=== PATIENT | female | born 2000 | race African-American/Black ===

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

== ENCOUNTER 2018-04-09 00:52 | Emergency (ER) | payer SELFPAY ==
[2018-04-09] MEDS ORDERED: Lidocaine 1% (PF) 30 ML VIAL ONE (01:17)
== END 2018-04-09 02:00 | disposition home or self-care (01) ==
LOC: ERS 00:52
DX: L02.31 Cutaneous abscess of buttock (principal); F17.290 Nicotine dependence, other tobacco product, uncomplicated
CPT/HCPCS: 10060; J2001

== ENCOUNTER 2018-08-27 22:06 | Emergency (ER) | payer SELFPAY ==
[2018-08-27 22:26] LABS: Bilirubin Negative (Negative); Blood, Urine Negative (Negative); Clarity CLEAR (Clear); Glucose, Urine (Dipstick) Negative (Negative); Leukocyte Negative (Negative); Nitrite Negative (Negative); Pregnancy Test - Urine (BHCG) Negative (Negative); Pregu Control Background? CLEAR/WHITE (CLR/WHITE); Pregu Control Bar Appear? YES (CONTROL BAR); Protein, Urine (Dipstick) Negative (Neg-Trace); Specific Gravity 1.018 (1.002-1.036); Specific Gravity, Urine 1.018 (1.002-1.036); Urobilinogen 0.2 mg/dL (0.2-1.0)
[2018-08-27 22:27] LABS: Hemoglobin 13.9 g/dL (12.0-16.0); Mean Corpuscular HGB CONC 31.9 g/dL (32.0-36.0); Mean Corpuscular Hemoglobin 28.7 pg (25.0-35.0); Mean Corpuscular Volume 90.1 fL (78.0-98.0); Mean Platelet Volume 8.9 fL (7.4-10.4); Platelet Count 179 thou/uL (130-400); RBC Distribution Width 14.6 % (11.5-14.5); Red Blood Cell (RBC) Count 4.83 mill/uL (4.00-5.20); White Blood Cell (WBC) Count 4.6 thou/uL (4.8-10.8)
[2018-08-27 22:45] LABS: Lymphocytes 32 % (28-48); MDiff Complete? YES; Monocytes 3 % (0-4); Neutrophil 65 % (31-61); Platelet Morphology Comment Appears Adequate; RBC Morphology Normal
[2018-08-27 22:49] LABS: ALT (SGPT) 10 U/L (8-55); AST (SGOT) 16 U/L (5-30); Albumin 4.3 g/dL (3.5-5.0); Alkaline Phosphatase 66 U/L (40-150); Anion Gap 12 mmol/L (10-20); BUN (Urea Nitrogen) 11 mg/dL (8.4-21.0); Bilirubin, Total 0.3 mg/dL (0.2-1.2); Calc. Creatinine Clearance 0 mL/min (70-130); Calcium 9.5 mg/dL (7.8-10.44); Carbon Dioxide 23 mmol/L (22-29); Chloride 105 mmol/L (98-107); Estimated GFR-MDRD Greater than 90; Globulin 3.4 g/dL (2.4-3.5); Glucose 88 mg/dL (70-105); Lipase 20 U/L (8-78); Potassium 4.1 mmol/L (3.5-5.1); Protein, Total 7.7 g/dL (6.0-8.3); Sodium 136 mmol/L (136-145)
== END 2018-08-27 23:25 | disposition home or self-care (01) ==
LOC: ERS 22:06
DX: R10.9 Unspecified abdominal pain (principal); F17.210 Nicotine dependence, cigarettes, uncomplicated
CPT/HCPCS: 36415; 80053; 81003; 81025; 83690; 85025; 99284

== ENCOUNTER 2018-11-29 12:19 | Emergency (ER) | payer SELFPAY | END 2018-11-29 12:45 | disposition home or self-care (01) | LOC: SCSER 12:19 | DX: L02.31 Cutaneous abscess of buttock (principal); F17.210 Nicotine dependence, cigarettes, uncomplicated | CPT/HCPCS: 10060 ==

== ENCOUNTER 2018-12-10 11:11 | Emergency (ER) | payer SELFPAY ==
[2018-12-10] MEDS ORDERED: diphenhydrAMINE 25 MG CAP ONE (13:16)
[2018-12-10] MEDS ORDERED: predniSONE 20 MG TAB ONE (13:17)
== END 2018-12-10 13:30 | disposition home or self-care (01) ==
LOC: ERS 11:11
DX: L23.5 Allergic contact dermatitis due to other chemical products (principal); F17.210 Nicotine dependence, cigarettes, uncomplicated
CPT/HCPCS: 99282; J7512; Q0163

== ENCOUNTER 2019-03-08 19:11 | Emergency (ER) | payer SELFPAY ==
[2019-03-08] MEDS ORDERED: diphenhydrAMINE 50 MG/ML VIAL ONE (19:49)
[2019-03-08] MEDS ORDERED: Prochlorperazine 10 MG/2 ML VIAL ONE (19:49)
[2019-03-08] MEDS ORDERED: Ketorolac Tromethamine 30 MG/ML VIAL ONE (19:49)
== END 2019-03-08 20:35 | disposition home or self-care (01) ==
LOC: SCSER 19:11
DX: R51 Headache (principal); F17.290 Nicotine dependence, other tobacco product, uncomplicated
CPT/HCPCS: 96365; 96375; J0780; J1200; J1885

== ENCOUNTER 2019-04-09 12:20 | Emergency (ER) | payer SELFPAY ==
[2019-04-09] MEDS ORDERED: Lidocaine 1% 20 ML MDV ONE (12:33)
== END 2019-04-09 12:58 | disposition home or self-care (01) ==
LOC: SCSER 12:20
DX: L02.31 Cutaneous abscess of buttock (principal); F17.210 Nicotine dependence, cigarettes, uncomplicated
CPT/HCPCS: 10060; J2001

== ENCOUNTER 2019-08-01 01:41 | Emergency (ER) | payer SELFPAY ==
[2019-08-01 02:09] LABS: #Basophils 0.2 thou/uL (0.0-0.2); #Eosinphils 0.2 thou/uL (0.0-0.7); #Lymphocytes 3.2 thou/uL (1.20-3.40); #Monocytes 0.4 thou/uL (0.11-0.59); #Neutrophils 3.7 thou/uL (1.40-6.50); %Basophils 2.4 % (0.0-1.0); %Eosinophils 2.7 % (0.0-10.0); %Monocytes 5.6 % (0.0-4.0); %Neutrophils 48.3 % (31.0-61.0); Hemoglobin 13.5 g/dL (12.0-16.0); Mean Corpuscular HGB CONC 32.2 g/dL (32.0-36.0); Mean Corpuscular Hemoglobin 29.4 pg (25.0-35.0); Mean Corpuscular Volume 91.2 fL (78.0-98.0); Mean Platelet Volume 8.7 fL (7.4-10.4); Platelet Count 189 thou/uL (130-400); RBC Distribution Width 13.6 % (11.5-14.5); Red Blood Cell (RBC) Count 4.61 mill/uL (4.00-5.20); White Blood Cell (WBC) Count 7.7 thou/uL (4.8-10.8)
[2019-08-01 02:15] LABS: Bacteria/HPF 1+ HPF (None Seen); Bilirubin Negative (Negative); Blood, Urine 3+ (Negative); Clarity Clear (Clear); Glucose, Urine (Dipstick) Normal (Negative); Leukocyte 25 Leu/uL (Negative); Nitrite Negative (Negative); Protein, Urine (Dipstick) 10 mg/dL (Neg-Trace); RBC/HPF Greater than 50 HPF (0-3); Squamous Epithelial 0-3 HPF (0-3); Urobilinogen Normal mg/dL (Less than 2)
--- NOTE | 2019-08-01 07:55 | ULT ---
PRELIMINARY REPORT/[facility]/AFTER HOURS PROCEDURE COMPLETE OBSTETRICAL ULTRASOUND GREATER THAN FOURTEEN WEEKS: CLINICAL HISTORY: Vaginal bleeding x3 days. See notes on last image. Thanks. TECHNIQUE: Transvaginal imaging of the maternal pelvis and a <14 week gestation with image documentation. COMPARISON: None provided. FINDINGS: GESTATION: A 4.5 mm cystic structure is probably a tiny gestational sac with no evidence for po le or heartbeat at this time. UTERUS: Unremarkable. No myometrial mass. Measures 8.4 x 4.0 x 4.4 cm. CERVIX: Closed. Unremarkable. OVARIES: Unremarkable. No mass. The LEFT side measures 2.8 x 2.4 x 2.5 cm and the RIGHT side measure s 3.6 x 2.1 x 2.1 cm. FREE FLUID: No free fluid. IMPRESSION: Suspected tiny early intrauterine gestational sac. ELECTRONICALLY SIGNED BY: Darron Dean MD Aug 01, 2019 3:10:59 AM [employer] This report is intended for review by the ordering physician only, in accordance of law. If you recei ve this report in error, please call [facility] at [phone]. FINAL REPORT PELVIC ULTRASOUND EXAMINATION INCLUDING TRANSVAGINAL AND VASCULAR DUPLEX WITH COLOR AND SPECTRAL DOPP LER IMAGING: HISTORY: Vaginal bleeding for three days. FINDINGS: Abnormally thickened, echogenic endometrium, up to 1.3 cm, with a tiny, 0.3 x 0.5 x 0.6 cm probable v tam early gestational sac within the uterus. There is some free cul-de-sac fluid. There is a 1.2 cm i n diameter hypoechoic mass in the right ovary, probably a complicated ovarian functional cyst. No angelika dence for ovarian torsion. Recommend follow-up serum hCGs for further assessment. This report is in agreement with the preliminary report. CODE QA POS: MOSHE
== END 2019-08-01 03:41 | disposition home or self-care (01) ==
LOC: ERS 01:41
DX: O20.9 Hemorrhage in early pregnancy, unspecified (principal); O99.331 Smoking (tobacco) complicating pregnancy, first trimester; F17.290 Nicotine dependence, other tobacco product, uncomplicated; Z3A.01 Less than 8 weeks gestation of pregnancy
CPT/HCPCS: 36415; 76856; 81003; 81015; 84702; 85025; 86900; 86901

== ENCOUNTER 2019-08-04 11:24 | Emergency (ER) | payer SELFPAY ==
--- NOTE | 2019-08-04 13:54 | ULT ---
TRANSABDOMINAL AND ENDOVAGINAL PELVIC ULTRASOUND: HISTORY: Evaluate for ectopic . Current serum beta HCG is 33; previous beta-hCG is 561. COMPARISON: 08/01/2019. TECHNIQUE: Transabdominal and endovaginal imaging of the pelvis is performed. Ovaries are interrogated with rios scale, color flow, Doppler imaging and spectral wave form analysis. FINDINGS: Uterus: No myometrial masses. Uterus measurin.7 x 4.0 x 5.8 cm. Endometrium: Homogeneous echotexture. Endometrium diameter: 1 cm. No evidence of a gestational sac, yolk sac or pole.. Free fluid: A small amount of free fluid is noted in the cul-de-sac. Right ovary: Normal echotexture. Right ovary measurement: 3.8 x 1.8 x 3.3 cm. Left ovary: Normal echotexture. Left ovary measurements: 3.5 x 2.2 x 3.1 cm. Ovarian Doppler: There is vascular flow to the left and right ovary. IMPRESSION: 1. No sonographic evidence of gestational sac, yolk sac or pole. 2. A small amount of the cul-de-sac. 3. Symmetric echotexture of the ovaries. 4. Given decreasing serum beta hCG, a missed spontaneous is favored. Continued follow-up wit h serial beta hCG is recommended. Transcribed Date/Time: 08/04/2019 2:00 PM
== END 2019-08-04 14:18 | disposition home or self-care (01) ==
LOC: ERS 11:24
DX: O03.9 Complete or unspecified spontaneous abortion without complication (principal); F17.290 Nicotine dependence, other tobacco product, uncomplicated; O99.331 Smoking (tobacco) complicating pregnancy, first trimester; Z3A.01 Less than 8 weeks gestation of pregnancy
CPT/HCPCS: 36415; 76856; 84702

== ENCOUNTER 2019-12-05 08:46 | Emergency (ER) | payer SELFPAY ==
[2019-12-05] MEDS ORDERED: Lidocaine 1% PF 5 ML VIAL ONE (09:11)
== END 2019-12-05 09:44 | disposition home or self-care (01) ==
LOC: ERS 08:46
DX: L02.31 Cutaneous abscess of buttock (principal); F17.290 Nicotine dependence, other tobacco product, uncomplicated
CPT/HCPCS: 10060; J2001

== ENCOUNTER 2020-09-16 12:07 | Emergency (ER) | payer SELFPAY ==
[2020-09-16] MEDS ORDERED: Clindamycin/D5W 900 mg/50 ml Premix Bag ONE (12:18)
[2020-09-16] MEDS ORDERED: Fentanyl 100 MCG/2 ML VIAL ONE (12:18)
[2020-09-16] MEDS ORDERED: Lidocaine 1% PF 5 ML VIAL ONE (12:18)
[2020-09-16] MEDS ORDERED: Lidocaine 1% w/Epinephrine 1:100K 20 ML VIAL ONE (12:32)
== END 2020-09-16 13:24 | disposition home or self-care (01) ==
LOC: ERS 12:07
DX: L02.31 Cutaneous abscess of buttock (principal); F17.210 Nicotine dependence, cigarettes, uncomplicated
CPT/HCPCS: 10060; 96365; 96375; J3010; J3490

== ENCOUNTER 2022-01-06 13:08 | Emergency (ER) | payer SELFPAY ==
[2022-01-06] MEDS ORDERED: Lidocaine 1% w/Epinephrine 1:100K 20 ML VIAL ONE (14:30)
[2022-01-06] MEDS ORDERED: Ketorolac Tromethamine 30 MG/ML VIAL ONE (16:08)
[2022-01-06] MEDS ORDERED: HYDROcodone/Acetaminophen 5/325 mg Tablet ONE (16:08)
== END 2022-01-06 16:16 | disposition home or self-care (01) ==
LOC: ERS 13:08
DX: L02.31 Cutaneous abscess of buttock (principal); L03.317 Cellulitis of buttock; F17.290 Nicotine dependence, other tobacco product, uncomplicated
CPT/HCPCS: 10060; 96372; J1885

== ENCOUNTER 2023-09-02 12:49 | Emergency (ER) | payer SELFPAY ==
[2023-09-02 13:44] LABS: Bacteria/HPF None Seen HPF (None Seen); Bilirubin Negative (Negative); Blood, Urine Negative (Negative); Clarity Clear (Clear); Glucose, Urine (Dipstick) Normal (Negative); Ketone, Urine Negative (Negative); Leukocyte 25 Leu/uL (Negative); Nitrite Negative (Negative); Protein, Urine (Dipstick) Negative (Neg-Trace); RBC/HPF None Seen HPF (0-3); Specific Gravity, Urine 1.007 (1.002-1.036); Squamous Epithelial 0-3 HPF (0-3); Urobilinogen Normal mg/dL (Less than 2); WBC/HPF 0-3 HPF (0-3); pH, Urine 5.5 (5.0-9.0)
[2023-09-02 13:53] LABS: Urine Culture Reflex Yes Yes
[2023-09-02 13:58] LABS: Pregnancy Test - Urine (BHCG) Negative (Negative); Pregu Control Background? CLEAR/WHITE (CLR/WHITE); Pregu Control Bar Appear? YES (CONTROL BAR); Specific Gravity 1.007 (1.002-1.036)
[2023-09-03 14:09] LABS: GC by PCR, Vaginal Swab DETECTED (NotDetected)
== END 2023-09-02 14:10 | disposition home or self-care (01) ==
LOC: ERS 12:49
DX: Z11.3 Encounter for screening for infections with a predominantly sexual mode of transmission (principal); F17.290 Nicotine dependence, other tobacco product, uncomplicated
CPT/HCPCS: 81001; 81025; 87480; 87510; 87591; 87660; 99283

== ENCOUNTER → 2023-09-06 | Day surgery (SDC) | payer SELFPAY ==
[~2023-09-06] MED LIST: Lidocaine 1% PF 5 ML VIAL ONE; cefTRIAXone (ROCEPHIN) 500 MG VIAL ONE
== END ==
LOC: ER/OP 15:57
PROVIDERS: ATTEND Pathology Anatomic Pathology & Clinical Pathology
DX: Z23 Encounter for immunization (principal)
CPT/HCPCS: J0696